=== PATIENT | male | born 2000 | race Caucasian/White ===

== ENCOUNTER 2018-06-15 11:53 | Emergency (ER) | payer OTHER | END 2018-06-15 13:07 | disposition home or self-care (01) | LOC: FTE 11:53 | DX: H10.9 Unspecified conjunctivitis (principal) | CPT/HCPCS: 99283; Z7502 ==

== ENCOUNTER 2018-08-06 12:18 | Emergency (ER) | payer SELFPAY, OTHER | END 2018-08-06 13:02 | disposition left against medical advice (07) | LOC: FTE 12:18 | DX: Z53.21 Procedure and treatment not carried out due to patient leaving prior to being seen by health care provider (principal) ==

== ENCOUNTER 2018-10-06 07:10 | Emergency (ER) | payer SELFPAY ==
[2018-10-06] MEDS: DEXAMETHASONE 10 MG/ML 1 ML INJ IM (07:51)
[2018-10-06] MEDS: DIPHENHYDRAMINE 25 MG CAP PO (07:51)
[2018-10-06] MEDS: FAMOTIDINE 20 MG TAB PO (07:51)
== END 2018-10-06 08:11 | disposition home or self-care (01) ==
LOC: FTE 07:10
DX: L50.9 Urticaria, unspecified (principal)
CPT/HCPCS: 96372; 99284-25; J1100